=== PATIENT | male | born 1995 | race African-American/Black ===

== ENCOUNTER 2024-03-19 10:12 | Inpatient (IN) ==
[2024-03-19] MEDS: NS 0.9% 1000 ml BAG 1,000 ML IV ONE ×2 (13:00→15:08)
[2024-03-19 13:14] LABS: Hematocrit 40.9 % (38-53); Hemoglobin 14.1 g/dL (13.2-16.3); Mean Corpuscular Hemoglobin 31.3 pg (27-33); Mean Corpuscular Hgb Conc 34.5 g/dL (31-36); Mean Corpuscular Volume 90.8 fL (80-97); Mean Platelet Volume 7.4 fL (7.5-11.2); Platelet Count 305 10^3/uL (150-450); Red Blood Count 4.51 10^6/uL (4.06-5.63); Red Cell Distribution Width 11.6 % (12-17)
[2024-03-19 13:36] LABS: ABS Basophils 0.1 10^3/uL (0.0-0.1); ABS Lymphocytes 1.9 10^3/uL (1.0-4.8); ABS Monocytes 2.9 10^3/uL (0.0-1.1); ABS Neutrophils 22.1 10^3/uL (1.5-7.6); Lymphocyte % 7.2 %
[2024-03-19 14:08] LABS: Albumin/Globulin Ratio 1.1 (1-3); C Reactive Protein 195.46 mg/L (<8.01); Calcium 9.4 mg/dL (8.6-10.3); Creatinine, Serum 1.22 mg/dL (0.67-1.17); Globulin 3.5 g/dL (2-4); Potassium 3.7 mmol/L (3.5-5.0); Total Bilirubin 1.4 mg/dL (0.2-1.0); Total Protein 7.5 g/dL (6.4-8.9); eGFR CKD-EPI 82.3 (>60)
[2024-03-19] MEDS: Cefepime 2 GM in Dextrose 2 GM/50 ML BAG IV ONE (15:07)
[2024-03-19] MEDS: Vancomycin 1,500 MG in NS 0.9% 250 ml 250 ML IVPB ONE (15:42)
[2024-03-19] MEDS: Iohexol 300 (CONTRAST) 10 ML SDV IV ONE (15:45)
[2024-03-19] MEDS: fentaNYL 100 mcg/2 ml 50 MCG/ML VIAL IV SLOW PU ONE (17:30)
[2024-03-19] MEDS: Lactated Ringers 1000 ml BAG 1,000 ML IV SCH (20:12)
[2024-03-19] MEDS: Enoxaparin 40 MG/0.4 ML SYR SUBCUT SCH (23:25)
[2024-03-20 06:56] LABS: Hematocrit 37.6 % (38-53); Hemoglobin 12.9 g/dL (13.2-16.3); Mean Corpuscular Hemoglobin 31.1 pg (27-33); Mean Corpuscular Hgb Conc 34.3 g/dL (31-36); Mean Corpuscular Volume 90.6 fL (80-97); Mean Platelet Volume 7.2 fL (7.5-11.2); Platelet Count 293 10^3/uL (150-450); Red Blood Count 4.14 10^6/uL (4.06-5.63); Red Cell Distribution Width 11.5 % (12-17); White Blood Count 20.4 10^3/uL (3.6-10.2)
[2024-03-20 07:32] LABS: ABS Basophils 0.1 10^3/uL (0.0-0.1); ABS Lymphocytes 2.3 10^3/uL (1.0-4.8); ABS Monocytes 1.9 10^3/uL (0.0-1.1); ABS Nucleated RBC 0.01 10^3/ul; Eosinophil % 0.2 %; Lymphocyte % 11.5 %
[2024-03-20 08:15] LABS: Calcium 8.4 mg/dL (8.6-10.3); Creatinine, Serum 1.05 mg/dL (0.67-1.17); Potassium 4.3 mmol/L (3.5-5.0); eGFR CKD-EPI 98.5 (>60)
[2024-03-20] MEDS: Piperacillin/Tazobac 3.375 BAG 3.375 GM/100 ML BAG IV ONE (10:45)
[2024-03-20] MEDS ORDERED: Zosyn per Pharmacy NOTE FOLLOW UP SCH (13:00)
[2024-03-20] MEDS: ZOSYN 3.375 GM Q8H per EXTENDED INFUSION IV SCH (14:47)
[2024-03-20] MEDS ORDERED: Polyethylene Glycol 3350 17 GM PACKET PO PRN (14:57)
[2024-03-20] MEDS ORDERED: Magnesium Hydroxide LIQ 30 ML UDC PO PRN (14:57)
[2024-03-20] MEDS: Senna TAB 8.6 mg TAB PO SCH (19:37)
[2024-03-21 09:31] VITALS: BP 117/82
[2024-03-21 10:21] LABS: ABS Basophils 0.1 10^3/uL (0.0-0.1); ABS Eosinophils 0.1 10^3/uL (0.0-0.5); ABS Monocytes 0.9 10^3/uL (0.0-1.1); ABS Neutrophils 5.8 10^3/uL (1.5-7.6); ABS Nucleated RBC 0.01 10^3/ul; Eosinophil % 1.4 %; Hematocrit 37.4 % (38-53); Hemoglobin 12.9 g/dL (13.2-16.3); Lymphocyte % 22.6 %; Mean Corpuscular Hemoglobin 31.5 pg (27-33); Mean Corpuscular Hgb Conc 34.5 g/dL (31-36); Mean Corpuscular Volume 91.5 fL (80-97); Mean Platelet Volume 7.3 fL (7.5-11.2); Nucleated Red Blood Cells % 0.1 %/100WBC (0.0-0.8); Platelet Count 304 10^3/uL (150-450); Red Blood Count 4.09 10^6/uL (4.06-5.63); Red Cell Distribution Width 11.7 % (12-17); White Blood Count 8.9 10^3/uL (3.6-10.2)
[2024-03-21] MEDS ORDERED: Amoxicillin/Clavul 875/125 TAB (Augmentin 875 tab) PO SCH (21:00)
== END 2024-03-21 12:35 | disposition home or self-care (01) | DRG 603 ==
LOC: ED 10:12 → EDHOLD 18:50 → SUATTDRO 18:50 → MEDTELE 20:28
PROVIDERS: ADMIT Internal Medicine; ATTEND Student in an Organized Health Care Education/Training Program